=== PATIENT | male | born 1985 | race Caucasian/White ===

== ENCOUNTER 2017-03-25 00:02 | Emergency (ER) | payer OTHER ==
[2017-03-25] MEDS ORDERED: GELATIN SPONGE,ABSORB (SMALL) 1 EACH SPONGE TOPICAL STA (00:18)
[2017-03-25 00:26] VITALS: RESP 20
[2017-03-25 01:24] LABS: Basophils % (A) 1 %; Eosinophils # (A) 0.1 k/uL (0-0.7); Eosinophils % (A) 1 %; HCT 44.5 % (39.0-53.0); HGB 13.8 gm/dL (13.0-17.5); Lymphocytes # (A) 1.7 k/uL (1.0-4.8); Lymphocytes % (A) 23 %; MCH 29.1 pg (25.0-35.0); MCHC 31.1 g/dL (31.0-37.0); MCV 93.8 fL (80.0-100.0); Mean Platelet Volume 6.8; Monocytes # (A) 0.5 k/uL (0-1.0); Monocytes % (A) 6 %; Neutrophils # (A) 5.1 k/uL (1.3-7.7); Neutrophils % (A) 68 %; Platelet Count 353 k/uL (150-450); RBC 4.74 m/uL (4.30-5.90); RDW 15.3 % (11.5-15.5); WBC 7.6 k/uL (3.8-10.6)
[2017-03-25 01:41] LABS: ALT 31 U/L (21-72); AST 21 U/L (17-59); Albumin 4.4 g/dL (3.5-5.0); Alkaline Phosphatase 168 U/L (38-126); Anion Gap 14 mmol/L; Blood Urea Nitrogen 12 mg/dL (9-20); Carbon Dioxide 26 mmol/L (22-30); Chloride 102 mmol/L (98-107); Glucose 84 mg/dL (74-99); Potassium 4.3 mmol/L (3.5-5.1); Sodium 142 mmol/L (137-145); Total Bilirubin 0.9 mg/dL (0.2-1.3); Total Protein 8.2 g/dL (6.3-8.2)
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
[2017-03-25 03:20] VITALS: BP 110/69; PULSE 104; TEMP 97.3
== END 2017-03-25 03:34 | disposition other institution (70) ==
LOC: EC 00:02
DX: J95.01 Hemorrhage from tracheostomy stoma (principal); Z79.899 Other long term (current) drug therapy; Z91.048 Other nonmedicinal substance allergy status; Z88.8 Allergy status to other drugs, medicaments and biological substances
CPT/HCPCS: 36415; 80053; 85025; 99285